=== PATIENT | female | born 1980 | race Caucasian/White ===

== ENCOUNTER 2022-03-12 18:41 | Emergency (ER) | payer MEDICAID ==
[~2022-03-12] VITALS: Ht 165.1 cm; Wt 67.1 kg
--- NOTE | 2022-03-12 20:00 | NUR ---
PATIENT WAS JUST TRIAGED AND PLACED IN ROOM AT THIS TIME DUE SHORT STAFFING AND HOLDING 1 ICU AND MULTIPLE MEDICAL PATIENT.
[2022-03-12 21:35] LABS: HEMATOCRIT 34.1 % (31.2-41.9); MEAN CORPUSCULAR HEMOGLOBIN 22.1 uug (24.7-32.8); MEAN CORPUSCULAR VOLUME 68.5 fL (75.5-95.3); PLATELET COUNT (AUTO) 209 K/uL (179-408)
[2022-03-12 21:37] LABS: CARBON DIOXIDE 28 mmol/L (21-32); CHLORIDE 105 mmol/L (98-107); CREATININE 0.8 mg/dL (0.6-1.3); GLUCOSE 82 mg/dL (74-106); POTASSIUM 3.6 mmol/L (3.5-5.1); UREA NITROGEN, BLOOD 11 mg/dL (7-18)
[2022-03-12 21:46] LABS: ALANINE AMINOTRANSFERASE 20 U/L (14-59); ALKALINE PHOSPHATASE 47 U/L (50-136); ASPARTATE AMINOTRANSFERASE 13 U/L (15-37); BILIRUBIN,DIRECT 0.3 mg/dL (0.0-0.2); BILIRUBIN,TOTAL 1.4 mg/dL (0.2-1.0); TOTAL PROTEIN, SERUM 7.9 g/dL (6.4-8.2)
[2022-03-12] MEDS ORDERED: LORA-259 PO (21:54)
[2022-03-12 22:05] VITALS: BP 110/70
--- NOTE | 2022-03-12 22:05 | NUR ---
Patient discharged to home in stable condition. Written and verbal after care instructions given. Patient verbalizes understanding of instructions. Stressed follow up or return to ER for worsening s/s.
[2022-03-12 22:09] LABS: EOSINOPHILS % (MANUAL) 1 % (0-8); LYMPHOCYTES % (MANUAL) 48 % (20-40); MONOCYTES % (MANUAL) 5 % (2-10); NEUTROPHILS % (MANUAL) 46 % (42-75)
== END 2022-03-12 22:05 | disposition home or self-care (01) ==
LOC: ER 19:29
DX: R07.89 Other chest pain (principal); D56.3 Thalassemia minor; F41.9 Anxiety disorder, unspecified; R94.31 Abnormal electrocardiogram [ECG] [EKG]; Z88.0 Allergy status to penicillin
CPT/HCPCS: 36415; 70030-TC; 71045; 83735; 84484; 85025; 93005; A4663

== ENCOUNTER 2023-02-01 16:07 | Emergency (ER) | payer MEDICAID, OTHER ==
[~2023-02-01] VITALS: Ht 165.1 cm; Wt 67.1 kg
[~2023-02-01 16:07] MED LIST: LORA-259 PO
[2023-02-01 16:18] VITALS: O2SAT 99
[2023-02-01] MEDS ORDERED: IBUP-1955 PO (17:38)
== END 2023-02-01 18:27 | disposition home or self-care (01) ==
LOC: ER 16:10
DX: S82.891A Other fracture of right lower leg, initial encounter for closed fracture (principal); Z79.899 Other long term (current) drug therapy; Z88.0 Allergy status to penicillin; X50.1XXA Overexertion from prolonged static or awkward postures, initial encounter; Y93.89 Activity, other specified; Y92.89 Other specified places as the place of occurrence of the external cause; Y99.8 Other external cause status
CPT/HCPCS: 73610; A4663